=== PATIENT | female | born 1990 | race Caucasian/White ===

== ENCOUNTER 2023-10-19 14:57 | Emergency (ER) | payer BC ==
[~2023-10-19] VITALS: Ht 167.6 cm; Wt 63.5 kg
[2023-10-19 15:05] VITALS: RESP 17; TEMP 98.4
[2023-10-19] MEDS: ONDANSETRON HCL INJ 2MG/ML 2ML 2 MG/ML VIAL IV STA (15:52)
[2023-10-19] MEDS: SODIUM CHLORIDE 0.9% 1000ML 1,000 ML IV STA (15:52)
[2023-10-19 15:54] LABS: BASOPHILS % 0.2 % (0.0-1.0); EOSINOPHILS % 0.1 % (0.0-6.0); HEMATOCRIT 47.2 % (34.2-44.1); HEMOGLOBIN 16.8 g/dL (12.0-16.0); LYMPHOCYTES # (AUTO) 0.4 (1.0-3.2); LYMPHOCYTES % 2.7 % (18.0-39.1); MEAN CORPUSCULAR HEMOGLOBIN 31.3 pg (28-32); MEAN CORPUSCULAR HGB CONC 35.6 g/dL (31-35); MEAN CORPUSCULAR VOLUME 87.9 fL (81-99); MONOCYTES # (AUTO) 0.4 (0.2-0.8); MONOCYTES % 2.6 % (4.4-11.3); NEUTROPHILS # (AUTO) 15.3 (2.1-6.9); NEUTROPHILS % 93.9 % (38.7-80.0); PLATELET COUNT 229 x10e3/uL (140-360); RED BLOOD COUNT 5.37 x10e6/uL (3.6-5.1); RED CELL DISTRIBUTION WIDTH 11.6 % (11.7-14.4); WHITE BLOOD COUNT 16.29 x10e3/uL (4.8-10.8)
[2023-10-19 15:56] LABS: AMPHETAMINES SCREEN,URINE NEGATIVE (NEGATIVE); BENZODIAZEPINES SCREEN,URINE NEGATIVE (NEGATIVE); CANNABINOIDS SCREEN,URINE NEGATIVE (NEGATIVE); METHADONE SCREEN, URINE NEGATIVE (NEGATIVE); OPIATES SCREEN,URINE NEGATIVE (NEGATIVE); PHENCYCLIDINE SCREEN,URINE NEGATIVE (NEGATIVE)
[2023-10-19 15:57] LABS: BILIRUBIN,URINE SMALL (NEGATIVE); CLARITY,URINE SL CLOUDY (CLEAR); COLOR,URINE YELLOW (YELLOW); GLUCOSE, URINE NEGATIVE (NEGATIVE); KETONES,URINE >=160 (NEGATIVE); LEUKOCYTE ESTERASE ,URINE NEGATIVE (NEGATIVE); NITRITE,URINE NEGATIVE (NEGATIVE); PH,URINE 5.5 (5 - 7); PROTEIN,URINE DIPSTICK 1+ (NEGATIVE); URINE UROBILINOGEN 0.2 mg/dL (0.2 - 1)
[2023-10-19 16:06] LABS: INR 0.87; PROTHROMBIN TIME 12.4 seconds (11.9-14.5)
[2023-10-19 16:07] LABS: PARTIAL THROMBOPLASTIN TIME 23.1 seconds (23.8-35.5)
[2023-10-19 16:10] LABS: BACTERIA,URINE MODERATE /HPF; EPITHELIAL CELLS,URINE MODERATE /LPF; TRANSITIONAL EPI CELLS,URINE FEW; WBC,URINE (MAN) 0-5 /HPF (0-5)
[2023-10-19 16:15] LABS: ALANINE AMINOTRANSFERASE 20 IU/L (0-55); ALBUMIN 4.7 g/dL (3.5-5.0); ALBUMIN/GLOBULIN RATIO 1.4 (0.8-2.0); ALKALINE PHOSPHATASE 54 IU/L (40-150); BILIRUBIN,TOTAL 1.3 mg/dL (0.2-1.2); BLOOD UREA NITROGEN 16 mg/dL (7-26); CALCIUM 9.7 mg/dL (8.4-10.2); CARBON DIOXIDE 20 mmol/L (22-29); CREATINE KINASE 45 IU/L (29-168); GLUCOSE 86 mg/dL (74-118); LIPASE 22 U/L (8-78); MAGNESIUM 1.8 MG/DL (1.3-2.1); TOTAL PROTEIN 8.1 g/dL (6.5-8.1)
[2023-10-19 16:18] LABS: TROPONIN I 0.016 ng/mL (0-0.300)
[2023-10-19 16:49] LABS: ANION GAP 21.8 mmol/L (8-16); BUN/CREATININE RATIO 19 (6-25); CHLORIDE 100 mmol/L (98-107); CREATININE, SERUM 0.86 mg/dL (0.57-1.11); EST GLOMERULAR FILTRATION RATE 92 ML/MIN (>=60); POTASSIUM 3.8 mmol/L (3.5-5.1); SODIUM 137 mmol/L (136-145)
[2023-10-19 17:05] VITALS: PULSE 98
[2023-10-19 17:09] LABS: INFLUENZAE A&B ANTIGEN (RAPID) NEGATIVE (NEGATIVE)
[2023-10-19 17:10] LABS: RESPIRATORY SYNC. VIRUS NEGATIVE (NEGATIVE)
[2023-10-19 17:52] VITALS: BP 117/76; PULSE 98; RESP 17; O2SAT 100
== END 2023-10-19 17:35 | disposition home or self-care (01) ==
LOC: ER 15:02
DX: R11.2 Nausea with vomiting, unspecified (principal); R19.7 Diarrhea, unspecified; E86.0 Dehydration; T50.995A Adverse effect of other drugs, medicaments and biological substances, initial encounter; Z11.52 Encounter for screening for COVID-19
CPT/HCPCS: 36415; 71045; 80053; 80307; 81001; 82550; 83690; 83735; 84484; 84702; 85025; 85379; 85610; 85730; 87086; 87400; 87420; 93005; 99284; J2405; J2470; J7030; U0002